=== PATIENT | female | born 1995 | race American Indian/Alaskan Native ===

== ENCOUNTER 2019-12-06 21:54 | Emergency (ER) | payer SELFPAY ==
--- NOTE | 2019-12-06 21:57 | Emergency Department Report ---
Blank Doc - Documentation Documentation: 24-year-old female that presents with pelvic pain. Stated is 16 weeks . Deneis any vaginal bleeding. This initial assessment/diagnostic orders/clinical plan/treatment(s) is/are subject to change based on patient's health status, clinical progression and re-assessment by fellow clinical providers in the ED. Further treatment and workup at subsequent clinical providers discretion. Patient/guardians urged not to elope from the ED as their condition may be serious if not clinically assessed and managed. Initial orders include: 1- Patient sent to [facility] for further evaluation and treatment 2- labs 3- UA
[2019-12-06 22:18] LABS: Bacteria,Urine 1+ /HPF (Negative); Bilirubin,Urine NEG (Negative); Blood,Urine NEG (Negative); Color,Urine Yellow (Yellow); Mucus,Urine 1+ /HPF
[2019-12-06 22:48] LABS: Basophils # (Auto) 0.1 K/mm3 (0.0-0.1); Basophils % (Auto) 0.8 % (0.0-1.8); Eosinophils # (Auto) 0.4 K/mm3 (0.0-0.4); Eosinophils % (Auto) 4.6 % (0.0-4.3); Hematocrit 33.9 % (30.3-42.9); Hemoglobin 11.5 gm/dl (10.1-14.3); Lymphocytes # (Auto) 2.5 K/mm3 (1.2-5.4); Lymphocytes % (Auto) 31.9 % (13.4-35.0); Mean Corpuscular HGB Conc 34 % (30-34); Mean Corpuscular Volume 81 fl (79-97); Monocytes # (Auto) 0.7 K/mm3 (0.0-0.8); Monocytes % (Auto) 8.9 % (0.0-7.3); Platelet Count 183 K/mm3 (140-440); Red Blood Count 4.19 M/mm3 (3.65-5.03); Red Cell Distribution Width 14.2 % (13.2-15.2)
[2019-12-06 23:06] LABS: Alanine Aminotransferase 102 units/L (7-56); Albumin 3.5 g/dL (3.9-5); BUN/Creatinine Ratio 13; Blood Urea Nitrogen 9 mg/dL (7-17); Calcium 9.6 mg/dL (8.4-10.2); Hemolysis Index 2
--- NOTE | 2019-12-06 23:58 | Emergency Department Report ---
ED HPI - General Chief complaint: Urogenital-Female Stated complaint: VAG PAIN Time Seen by Provider: 12/06/19 21:56 Source: patient Mode of arrival: Ambulatory Limitations: No Limitations - History of Present Illness Initial comments: Patient is a 24-year-old female presents emergency room with complaints of suprapubic abdominal pain that began today. She has associated urinary frequency and dysuria. She is currently 16 weeks . She has not seen an [facility] yet and states that she plans to go to [place] for her OB care. She denies any vaginal bleeding, nausea, vomiting, diarrhea, fever, chills, vaginal discharge. She denies any past medical history. She denies any allergies to medications. She states her last menstrual cycle was September 2019. /P:2/A:0 - Related Data Previous Rx's Medication Instructions Recorded Last Taken Type cephALEXin [Keflex] 500 mg PO BID 7 Days #14 cap 12/07/19 Unknown Rx Allergies Allergy/AdvReac Type Severity Reaction Status Date / Time No Known Allergies Allergy Unverified 12/06/19 21:57 ED Review of Systems ROS: Stated complaint: VAG PAIN Other details as noted in HPI Comment: All other systems reviewed and negative ED Past Medical Hx - Past Medical History Previous Medical History?: No - Surgical History Past Surgical History?: No - Social History Smoking Status: Never Smoker - Medications Home Medications: Home Medications Medication Instructions Recorded Confirmed Last Taken Type cephALEXin [Keflex] 500 mg PO BID 7 Days #14 cap 12/07/19 Unknown Rx ED Physical Exam - General Limitations: No Limitations General appearance: alert, in no apparent distress - Head Head exam: Present: atraumatic, normocephalic - Eye Eye exam: Present: normal appearance - ENT ENT exam: Present: mucous membranes moist - Respiratory Respiratory exam: Present: normal lung sounds bilaterally. Absent: respiratory distress, wheezes, rales, rhonchi, stridor, chest wall tenderness, accessory muscle use, decreased breath sounds, prolonged expiratory - Cardiovascular Cardiovascular Exam: Present: regular rate, normal rhythm, normal heart sounds. Absent: systolic murmur, diastolic murmur, rubs, gallop - GI/Abdominal GI/Abdominal exam: Present: soft, normal bowel sounds. Absent: distended, tenderness, guarding, rebound, rigid - Neurological Exam Neurological exam: Present: alert, oriented X3 - Psychiatric Psychiatric exam: Present: normal affect, normal mood - Skin Skin exam: Present: warm, dry, intact ED Course Vital Signs 12/06/19 12/07/19 21:57 03:45 Temperature 97.6 F 97.9 F Pulse Rate 90 88 Respiratory 18 18 Rate Blood Pressure 160/85 Blood Pressure 123/67 [Right] O2 Sat by Pulse 100 100 Oximetry ED Medical Decision Making - Lab Data Result diagrams: 12/06/19 22:31 12/06/19 22:31 - Radiology Data Radiology results: report reviewed OB ultrasound Dictated by Thomas Jaramillo MD Live twin fetuses are present. Estimated gestational age for twin B is 15 weeks 1 day. heart rate is 160. Largest amniotic fluid pocket is 3.6 cm. OB ultrasound Dictated by Thomas Jaramillo MD Live twin fetuses are present approximately 15 weeks 4 days gestational age. heart rate for twin A is 159 and the largest amniotic fluid pocket is 2.2 cm Ultrasound abdomen complete Dictated by Thomas Jaramillo MD The gallbladder is normal without evidence of cholelithiasis. Common bile duct is normal measuring 2 mm. Visualized portions of the liver, spleen, kidneys, pancreas, aorta and inferior vena cava are normal. - Medical Decision Making Patient is a 24-year-old female presents emergency room with complaints of suprapubic abdominal pain that began today. She has associated urinary frequency and dysuria. She is currently 16 weeks . She has not seen an [facility] yet and states that she plans to go to [place] for her OB care. She denies any vaginal bleeding, nausea, vomiting, diarrhea, fever, chills, vaginal discharge. She denies any past medical history. She denies any allergies to medications. She states her last menstrual cycle was September 2019. /P:2/A:0. Vitals are stable. no abnormality on physical exam as documented in chart. Labs significant for ALT 102 and AST 67. hCG quant [id number]. UA shows evidence of early UTI with white blood cells and trace leukocyte esterase. OB ultrasound:Live twin fetuses are present. Estimated gestational age for twin B is 15 weeks 1 day. heart rate is 160. Largest amniotic fluid pocket is 3.6 cm. Live twin fetuses are present approximately 15 weeks 4 days gestational age. heart rate for twin A is 159 and the largest amniotic fluid pocket is 2.2 cm. Ultrasound abdomen complete:The gallbladder is normal without evidence of cholelithiasis. Common bile duct is normal measuring 2 mm. Visualized portions of the liver, spleen, kidneys, pancreas, aorta and inferior vena cava are normal. Discussed results with Dr. Bueno, ER attending regarding elevated LFTs, he advised minimal elevations and that patient could follow-up with OB and GI as an outpatient. Patient given prescription for Keflex. Advised patient Please take medication as prescribed. Increase your water inta ke. Do not drink alcohol. Avoid Tylenol use. take a vitamin over the counter. Follow-up with an [facility] in the next 2 to 3 days. It is very important that you follow-up with an OB doctor for care. Please follow-up with a GI doctor for your elevated liver test. Return to the em ergency room for any new or worsening symptoms. - Differential Diagnosis IUP, ectopic, UTI, subchorionic hemorrhage, ovarian cyst Critical care attestation.: If time is entered above; I have spent that time in minutes in the direct care of this critically ill patient, excluding procedure time. ED Disposition Clinical Impression: Elevated LFTs Abdominal pain in Qualifiers: Trimester: second trimester Qualified Code(s): O26.892 - Other specified related conditions, second trimester UTI (urinary tract infection) Qualifiers: Urinary tract infection type: acute cystitis Hematuria presence: without hematuria Qualified Code(s): N30.00 - Acute cystitis without hematuria Twin Qualifiers: Multiple gestation type: unspecified Trimester: second trimester Qualified Code(s): O30.002 - Twin , unspecified number of placenta and unspecified number of amniotic sacs, second trimester Disposition: DC-01 TO HOME OR SELFCARE Is pt being admited?: No Does the pt Need Aspirin: No Condition: Stable Instructions: Urinary Tract Infection in Women (ED), Abdominal Pain in (ED) Additional Instructions: Please take medication as prescribed. Increase your water intake. Do not drink alcohol. Avoid Tylenol use. take a vitamin over the counter. Follow- up with an [facility] in the next 2 to 3 days. It is very important that you follow-up with an OB doctor for care. Please follow-up with a GI doctor for your elevated liver test. Return to the emergency room for any new or worsening symptoms. Prescriptions: cephALEXin [Keflex] 500 mg PO BID 7 Days #14 cap Referrals: [facility] [Provider Group] - 3-5 Days [facility] [Provider Group] - 3-5 Days [facility] [Provider Group] - 3-5 Days [facility] [Provider Group] - 3-5 Days [facility] [Provider Group] - 3-5 Days Forms: Work/School Release Form(ED) Time of Disposition: 03:28 Print Language: KYRGYZ
--- NOTE | 2019-12-07 02:53 | Ultrasound Report ---
US abdomen complete INDICATION / CLINICAL INFORMATION: elevated LFTs. COMPARISON: None available. FINDINGS: The gallbladder is normal without evidence of cholelithiasis. Common bile duct is normal measuring 2 mm. Visualized portions of the liver, spleen, kidneys, pancreas, aorta and inferior vena cava are nor mal. IMPRESSION: Negative abdominal ultrasound Signer Name: Thomas Jaramillo MD FACR Signed: 12/07/2019 2:49 AM Workstation Name: [id number]
--- NOTE | 2019-12-07 03:10 | Ultrasound Report ---
US OB >= 14 weeks Fetus INDICATION / CLINICAL INFORMATION: , pelvic pain. COMPARISON: None available. FINDINGS: Live twin fetuses are present. This report is for twin A. Gestational age is approximately 15 weeks 4 days. The largest pocket of amniotic fluid is 2.2 cm. The placenta is anterior, grade 0 and free of the os. heart rate is 159. BPD is 2.90:15 weeks 1 day Head circumference is 12.08:16 weeks 0 days Abdominal circumference is 10.08:16 weeks 0 days Femur length is 1.8 equaling 15 weeks 1 day. IMPRESSION: Live twin fetuses are present approximately 15 weeks 4 days gestational age. heart rate for twi n A is 159 and the largest amniotic fluid pocket is 2.2 cm Signer Name: Thomas Jaramillo MD FACR Signed: 12/07/2019 3:06 AM Workstation Name: [id number]
--- NOTE | 2019-12-07 03:13 | Ultrasound Report ---
US OB >= 14 wk fetus add gest INDICATION / CLINICAL INFORMATION: abd pain, . COMPARISON: None available. FINDINGS: Live twin fetuses are present. This report is for twin B. Estimated gestational age is 15 weeks 1 day . heart rate is 160. The placenta is anterior, grade 0 and free of the os. The largest pocket o f amniotic fluid is 3.6 cm. BPD is 2.9 equaling 15 weeks 1 day Head circumference is 11.5 equally 15 weeks 4 days Abdominal circumference is 9.3 equals 15 weeks 3 days Femur length is 1.4 equaling 14 weeks 2 days IMPRESSION: Live twin fetuses are present. Estimated gestational age for twin B is 15 weeks 1 day. heart ra te is 160. Largest amniotic fluid pocket is 3.6 cm Signer Name: Thomas Jaramillo MD FACR Signed: 12/07/2019 3:08 AM Workstation Name: [id number]
[2019-12-07 03:46] VITALS: BP 123/67
== END 2019-12-07 03:45 | disposition home or self-care (01) ==
LOC: ED 21:54
DX: O30.002 Twin pregnancy, unspecified number of placenta and unspecified number of amniotic sacs, second trimester (principal); O26.892 Other specified pregnancy related conditions, second trimester; O23.42 Unspecified infection of urinary tract in pregnancy, second trimester; R30.0 Dysuria; R79.89 Other specified abnormal findings of blood chemistry; R10.2 Pelvic and perineal pain; Z79.899 Other long term (current) drug therapy; Z3A.15 15 weeks gestation of pregnancy
CPT/HCPCS: 36415; 76700; 76805; 76810; 80053; 81001; 84702; 85025